=== PATIENT | male | born 1980 | race African-American/Black ===

== ENCOUNTER 2018-03-21 09:51 | Emergency (ER) | payer MEDICARE, OTHER ==
[~2018-03-21] VITALS: Ht 195.6 cm; Wt 124.1 kg
[~2018-03-21 09:51] MED LIST: DIVA-78 PO; LOXA50CA PO; OLAN10TA3 PO; PROP10TA73 PO
[2018-03-21] MEDS ORDERED: DIPH50 PO (10:23)
[2018-03-21] MEDS ORDERED: AMLO-512 PO (10:23)
[2018-03-21] MEDS ORDERED: HALO10 PO (10:23)
[2018-03-21] MEDS ORDERED: ATOR10TA84 PO (10:23)
[2018-03-21] MEDS ORDERED: BENZ1TAB10 PO (10:23)
[2018-03-21] MEDS ORDERED: LORA10I IM (10:23)
[2018-03-21] MEDS ORDERED: HALO5I IM (10:23)
[2018-03-21] MEDS ORDERED: HALO5TAB2 PO (10:23)
[2018-03-21] MEDS ORDERED: HYD25 PO (10:23)
[2018-03-21] MEDS ORDERED: IBUP-2070 PO (10:23)
[2018-03-21] MEDS ORDERED: LISI-662 PO (10:23)
[2018-03-21] MEDS ORDERED: DIPH50DI3 IM (10:23)
[2018-03-21] MEDS ORDERED: DOCU250C91 PO (10:23)
[2018-03-21] MEDS ORDERED: OLAN7.5T2 PO (10:23)
[2018-03-21] MEDS ORDERED: DIVA-78 PO (10:23)
[2018-03-21] MEDS ORDERED: LORA2TAB2 PO (10:23)
[2018-03-21] MEDS ORDERED: TERB15CR21 TP (10:23)
[2018-03-21 11:36] LABS: AMPHET/METH SCREEN,URINE NEGATIVE (NEGATIVE); BARBITURATE SCREEN, URINE NEGATIVE (NEGATIVE); BENZODIAZEPINES SCREEN,URINE NEGATIVE (NEGATIVE); CANNABINOID SCREEN,URINE NEGATIVE (NEGATIVE); COCAINE SCREEN,URINE NEGATIVE (NEGATIVE); METHADONE SCREEN, URINE NEGATIVE (NEGATIVE); OPIATE SCREEN,URINE NEGATIVE (NEGATIVE)
[2018-03-21 11:37] LABS: PHENCYCLIDINE SCREEN,URINE NEGATIVE (NEGATIVE)
[2018-03-21 11:42] LABS: APPEARANCE,URINE CLEAR (CLEAR); BILIRUBIN,URINE NEGATIVE (NEGATIVE); GLUCOSE, URINE (UA) 100 mg/dL (NEGATIVE); KETONES,URINE NEGATIVE (NEGATIVE); LEUKOCYTE ESTERASE ,URINE NEGATIVE (NEGATIVE); NITRATE,URINE NEGATIVE (NEGATIVE); OCCULT BLOOD,URINE SMALL (NEGATIVE); PROTEIN,URINE NEGATIVE (NEGATIVE); UROBILINOGEN,URINE 0.2 mg/dL (<=1.0)
[2018-03-21] MEDS: ONDANSETRON HCL 4 MG TABLET PO ONE (11:52)
[2018-03-21] MEDS: LORazepam 1 MG TABLET PO ONE (11:52)
[2018-03-21 11:57] LABS: BACTERIA,URINE None Seen /HPF (None Seen); WBC,URINE None Seen /HPF (0-5)
[2018-03-21 14:33] VITALS: BP 127/77
== END 2018-03-21 15:21 | disposition home or self-care (01) ==
LOC: EMS 09:52
DX: R10.9 Unspecified abdominal pain (principal); F20.0 Paranoid schizophrenia; F41.9 Anxiety disorder, unspecified; J45.909 Unspecified asthma, uncomplicated; F31.9 Bipolar disorder, unspecified; J44.9 Chronic obstructive pulmonary disease, unspecified; E11.9 Type 2 diabetes mellitus without complications; K21.9 Gastro-esophageal reflux disease without esophagitis; I10 Essential (primary) hypertension; F17.210 Nicotine dependence, cigarettes, uncomplicated; Z79.899 Other long term (current) drug therapy; Z88.8 Allergy status to other drugs, medicaments and biological substances; Z88.0 Allergy status to penicillin; Z88.5 Allergy status to narcotic agent
CPT/HCPCS: 74018; 74176; 80307; 81001; 99285; Q0162

== ENCOUNTER 2019-01-12 01:00 | Emergency (ER) | payer MEDICARE, OTHER ==
[~2019-01-12] VITALS: Ht 182.9 cm; Wt 131.8 kg
[~2019-01-12 01:00] MED LIST changes: +AMLO10TA7 PO; +ATOR10TA84 PO; +BENZ1TAB10 PO; +DIPH50 PO; +DIPH50DI3 IM; +DOCU250C91 PO; +HALO10 PO; +HALO5I IM; +HALO5TAB2 PO; +HYD25 PO; +IBUP-2070 PO; +LISI-662 PO; +LORA10I IM; +LORA2TAB2 PO; -LOXA50CA PO; -OLAN10TA3 PO; +OLAN7.5T2 PO; -PROP10TA73 PO; +TERB15CR21 TP
[2019-01-12] MEDS ORDERED: HYDR25TA PO (01:24)
[2019-01-12] MEDS ORDERED: TRIH2TAB3 PO (01:24)
[2019-01-12 02:04] LABS: BASOPHILS % (AUTO) 0.4 % (0.0-2.0); EOSINOPHILS % (AUTO) 2.5 % (1.0-6.0); HEMATOCRIT 44.4 % (41-53); HEMOGLOBIN 14.2 g/dL (13.5-17.5); LYMPHOCYTES # (AUTO) 4.1 K/uL (1.0-4.8); LYMPHOCYTES % (AUTO) 51.9 % (22.0-44.0); MEAN CORPUSCULAR HEMOGLOBIN 28.4 pg (26.0-34.0); MEAN CORPUSCULAR HGB CONC 32.1 G/dL (31.0-37.0); MEAN CORPUSCULAR VOLUME 89 fL (80-100); MONOCYTES # (AUTO) 0.3 K/uL (0.1-1.0); MONOCYTES % (AUTO) 4.2 % (2.0-9.0); NEUTROPHILS # (AUTO) 3.3 K/uL (1.8-7.7); PLATELET COUNT (AUTO) 161 K/uL (150-450); RED BLOOD CELL COUNT(AUTO) 5.01 MIL/uL (4.50-5.90); RED CELL DISTRIBUTION WIDTH 13.7 % (11.5-14.5)
[2019-01-12 02:12] LABS: ANION GAP 10 mmol/L (8-16); CALCIUM, TOTAL 9.7 mg/dL (8.8-10.5); CARBON DIOXIDE 27 mmol/L (22-29); CHLORIDE 101 mmol/L (98-107); CREATININE 1.17 mg/dL (0.60-1.30); GLOMERULAR FILTR. RATE CALC > 60 mL/min (>60); GLUCOSE,RANDOM 135 mg/dL (70-110); POTASSIUM 3.6 mmol/L (3.5-5.1); SODIUM SERUM 138 mmol/L (136-145); UREA NITROGEN, BLOOD 9 mg/dL (7-18)
[2019-01-12 02:18] LABS: ALANINE AMINOTRANSFERASE 32 U/L (12-78); ALBUMIN 4.1 g/dL (3.4-5.0); ALKALINE PHOSPHATASE 53 U/L (46-116); ASPARTATE AMINOTRANSFERASE 13 U/L (15-37); BILIRUBIN,TOTAL 0.3 mg/dL (0.1-1.0); TOTAL PROTEIN, SERUM 6.9 g/dL (6.4-8.2)
[2019-01-12 12:40] VITALS: BP 124/62
== END 2019-01-12 12:50 | disposition home or self-care (01) ==
LOC: EMS 01:02
DX: F20.9 Schizophrenia, unspecified (principal); E11.9 Type 2 diabetes mellitus without complications; I10 Essential (primary) hypertension; J44.9 Chronic obstructive pulmonary disease, unspecified; K21.9 Gastro-esophageal reflux disease without esophagitis; F41.9 Anxiety disorder, unspecified; F31.9 Bipolar disorder, unspecified; F17.210 Nicotine dependence, cigarettes, uncomplicated; Z79.899 Other long term (current) drug therapy; Z88.0 Allergy status to penicillin; Z88.5 Allergy status to narcotic agent; Z88.8 Allergy status to other drugs, medicaments and biological substances
CPT/HCPCS: 36415; 80053; 85025; 99284; G0480